=== PATIENT | female | born 1970 | race Caucasian/White ===

== ENCOUNTER → 2017-02-06 | Outpatient (CLI) | payer OTHER | LOC: BMCIMAGING 14:22 | PROVIDERS: ATTEND Otolaryngology | DX: R22.1 Localized swelling, mass and lump, neck (principal) | CPT/HCPCS: 76536-PO ==

== ENCOUNTER → 2017-08-04 | Outpatient (CLI) | payer OTHER | LOC: FIMAGING 08:45 | PROVIDERS: ATTEND Internal Medicine | DX: Z12.31 Encounter for screening mammogram for malignant neoplasm of breast (principal); Z80.3 Family history of malignant neoplasm of breast | CPT/HCPCS: G0202 ==

== ENCOUNTER 2018-07-21 10:52 | Emergency (ER) | payer MEDICAID ==
--- NOTE | 2018-07-21 12:13 | EDPHY ---
General Time Seen by Provider: 07/21/18 11:59 Narrative: CHIEF COMPLAINT: Fall from horse, rib pain HISTORY OF PRESENT ILLNESS: Patient presents by private vehicle with complaints of fall from horse and left rib pain. She reports that the injury occurred approximately 24 hr ago. She was riding her horse while wearing a helmet when she reports being thrown from the horse. She states that she landed on her left side with her arm against her. She did not strike her head or lose consciousness. She has complaints of severe left-sided rib pain just below the breast. She has mild left shoulder pain that is worse with palpation movement. Radiates around the left side of the flank. No abdominal pain. No chest pain, but she does have moderate to severe shortness of breath. Worse with mild exertion. She has no headache or neck pain. No back pain. No lower extremity or upper extremity complaints. No numbness tingling weakness. No nausea or vomiting. She was unable to sleep last night due to the pain. No other associated complaints or modifying factors REVIEW OF SYSTEMS: 10 systems were reviewed and negative with the exception of the elements mentioned in the history of present illness. PCP: Dr. Destiny Meng SPECIALISTS: None PAST MEDICAL HISTORY: Denies any medical diagnoses PAST SURGICAL HISTORY: Denies any surgical history SOCIAL HISTORY: Nonsmoker. Lives and works here independently with her domestic partner and 2 Children FAMILY HISTORY: Noncontributory EXAMINATION: General Appearance: Alert, no distress. Ambulatory and conversing in full sentences. Head: normocephalic, atraumatic Eyes: Pupils equal and round, no conjunctival pallor or injection ENT, Mouth: Mucous membranes moist Neck: Normal inspection, supple, non-tender. Midline trachea. No crepitus, step-off deformity. Respiratory: Splinting with inspiration. Lungs are clear to auscultation. No wheezing, rhonchi or crackles. No diminishment. No hypertympany Cardiovascular: Regular rate and rhythm Gastrointestinal: Abdomen is soft and nondistended. Bowel sounds are present. There is no tenderness in the 4 quadrants. No guarding. There is left CVA tenderness. Back: non-tender, no bony abnormalities. No crepitus, step-off deformity. Neurological: A&O, nonfocal, normal gait. Light sensory symmetric upper lower extremities. Strength is symmetric in the upper lower extremities. Normal steady gait Skin: Warm and dry, no rash. No petechiae or purpura Extremities: Nontender, no pedal edema Psychiatric: Mood and affect normal DIFFERENTIAL DIAGNOSES: Including but not limited to rib fracture, rib contusion, pulmonary contusion, pneumothorax, hemothorax, PE, splenic injury, hepatic injury, viscus injury MDM: 11:50 a.m. Fall from horse with blunt trauma yesterday afternoon. She has left shoulder left rib pain. She has left flank pain. Her abdominal exam is benign but she does have CVA tenderness on the left. X-ray of the ribs and shoulder was ordered prior to my examination and this is pending at this time. She is in no acute distress. Vital signs are within normal limits. 12:20 p.m. plain films reveal small, left apical pneumothorax. Given the patient's mechanism examination, I do feel it is reasonable to obtain a CT scan of the abdomen and pelvis as well as the chest. She does have left flank pain left shoulder pain which could be referred from the spleen. Patient is agreeable to this plan. I have discussed with Dr. Mora. Laboratory studies will be ordered confirm her renal function. She is postmenopausal thus I have not ordered an HCG. 12:30 p.m. Serum creatinine is 0.7 by [facility] laboratory. 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 1:40 p.m. Notified by radiologist Dr. Lanza. CT scan reveals small left apical pneumothorax with a nondisplaced 6th rib fracture on the left. Reformats are pending and there may be further rib fractures noted. 1:45 p.m. Cased discussed with Dr. Dan. He will evaluate the patient emergency department. 1:[address] Dan is in the emergency department to evaluate the patient. 2:[address] Dan has evaluated the patient and reviewed the CT imaging. He recommends Toradol 10 mg by mouth every 8 hr for 3-5 days, and then transitioned ibuprofen. He recommends Lidoderm patches as needed. He recommends Flexeril q.8h as needed. Recommends Dilaudid for breakthrough pain as needed. He recommends that the patient return in 24 hr for repeat chest x- ray to monitor the pneumothorax. ED precautions discussed. 2:40 p.m. I have also discussed the case with the patient's primary care physician Dr. Destiny Meng. She will order the repeat chest x-ray to be performed tomorrow. She will assume responsibility for the results of this and will instruct the patient to return to the emergency department if the x-ray has changed from today. Patient is aware this and she is comfortable being discharged home at this time. SUPERVISION: Patient was independently examined, but I discussed the case with my secondary supervising physician Dr. Mora CONSULTATION: Trauma, Dr. Dan - Diagnostics Imaging Results: Imaging Impressions Ribs w/Chest X-Ray 07/21/18 11:29 Impression: 1. Tiny left apical pneumothorax; otherwise negative. Results called to Dr. Marlon Mora at 12:00 PM. Shoulder X-Ray 07/21/18 11:34 Impression: Small left apical pneumothorax; otherwise negative left shoulder radiographs. Abdomen CT 07/21/18 12:19 Impression: 1. Small left pneumothorax. 2. Nondisplaced lateral left 6th rib fracture. 3. No acute posttraumatic findings in the abdomen or pelvis. 4. Adnexal varices, which can be seen in asymptomatic patients as well as patients with pelvic congestion syndrome. Findings discussed with Pratik Schmitz on 07/21/2018 at 13:41. Chest CT 07/21/18 12:19 Impression: 1. Small left pneumothorax. 2. Nondisplaced lateral left 6th rib fracture. 3. No acute posttraumatic findings in the abdomen or pelvis. 4. Adnexal varices, which can be seen in asymptomatic patients as well as patients with pelvic congestion syndrome. Findings discussed with Pratik Schmitz on 07/21/2018 at 13:41. - History Smoking Status: Never smoked - Objective Vital Signs: Initial Vital Signs Temperature (C) 97.7 F 07/21/18 10:56 Heart Rate 81 07/21/18 10:56 Respiratory Rate 16 07/21/18 10:56 Blood Pressure 123/78 H 07/21/18 10:56 O2 Sat (%) 97 07/21/18 10:56 O2 Delivery Mode Room Air Allergies/Adverse Reactions: No Known Allergies Allergy (Unverified 07/21/18 11:31) Home Medications: Medication Instructions Recorded Cyclobenzaprine [Flexeril 10 MG 10 mg PO TID PRN #15 tab 07/21/18 (*)] HYDROmorphone HCL [Dilaudid 2 mg 2 mg PO Q6 PRN #7 tab 07/21/18 (*)] Ketorolac Tromethamine [Toradol 1 tab PO Q8 PRN 3 Days #9 tab 07/21/18 10mg tab] Laboratory Results: Laboratory Results 07/21/18 12:28 07/21/18 07/21/18 07/21/18 12:33 12:28 12:28 WBC RBC Hgb POC Hgb 15.0 gm/dL gm/dL (12.6-16.3) Hct POC Hct 44 % % (38-47) MCV MCH MCHC RDW Plt Count PT 12.5 SEC SEC (12.0-15.0) INR 0.91 (0.83-1.16) APTT 25.2 SEC SEC (23.0-38.0) POC Sodium 142 mEq/L mEq/L (135-145) POC Potassium 3.9 mEq/L mEq/L (3.3-5.0) POC Chloride 104 mEq/L mEq/L (97-110) POC BUN 17 mg/dL mg/dL (7-23) POC Creatinine 0.7 mg/dL mg/dL (0.6-1.0) POC Glucose 94 mg/dL mg/dL (70-100) Total Bilirubin 0.4 mg/dL mg/dL (0.1-1.4) Conjugated Bilirubin 0.0 mg/dL mg/dL (0.0-0.5) Unconjugated Bilirubin 0.4 mg/dL mg/dL (0.0-1.1) AST 22 IU/L IU/L (14-46) ALT 31 IU/L IU/L (9-52) Alkaline Phosphatase 44 IU/L IU/L (38-126) Total Protein 6.9 g/dL g/dL (6.3-8.2) Albumin 4.4 g/dL g/dL (3.5-5.0) Lipase 72 IU/L IU/L (23-300) 07/21/18 12:28 WBC 6.97 10^3/uL 10^3/uL (3.80-9.50) RBC 4.87 10^6/uL 10^6/uL (4.18-5.33) Hgb 14.5 g/dL g/dL (12.6-16.3) POC Hgb Hct 43.3 % % (38.0-47.0) POC Hct MCV 88.9 fL fL (81.5-99.8) MCH 29.8 pg pg (27.9-34.1) MCHC 33.5 g/dL g/dL (32.4-36.7) RDW 12.1 % % (11.5-15.2) Plt Count 245 10^3/uL 10^3/uL (150-400) PT INR APTT POC Sodium POC Potassium POC Chloride POC BUN POC Creatinine POC Glucose Total Bilirubin Conjugated Bilirubin Unconjugated Bilirubin AST ALT Alkaline Phosphatase Total Protein Albumin Lipase Medications Given: Discontinued Medications Sodium Chloride (Ns) 1,000 mls @ 0 mls/hr IV EDNOW ONE; Wide Open PRN Reason: Protocol Stop: 07/21/18 12:20 Last Admin: 07/21/18 12:41 Dose: 1,000 mls Ketorolac Tromethamine (Toradol) 30 mg IVP EDNOW ONE Stop: 07/21/18 13:48 Last Admin: 07/21/18 13:57 Dose: 30 mg Point of Care Test Results: Chemistry 07/21/18 12:33 POC Sodium 142 mEq/L mEq/L (135-145) POC Potassium 3.9 mEq/L mEq/L (3.3-5.0) POC Chloride 104 mEq/L mEq/L (97-110) POC BUN 17 mg/dL mg/dL (7-23) POC Creatinine 0.7 mg/dL mg/dL (0.6-1.0) POC Glucose 94 mg/dL mg/dL (70-100) ISTAT H&H 07/21/18 12:33 POC Hgb 15.0 gm/dL gm/dL (12.6-16.3) POC Hct 44 % % (38-47) Departure - Departure Disposition: Home, Routine, Self-Care Clinical Impression: Pneumothorax, left Closed rib fracture Qualifiers: Encounter type: initial encounter Rib fracture type: multiple ribs Laterality: left Qualified Code(s): S22.42XA - Multiple fractures of ribs, left side, initial encounter for closed fracture Blunt chest trauma Qualifiers: Encounter type: initial encounter Qualified Code(s): S29.8XXA - Other specified injuries of thorax, initial encounter Condition: Good Instructions: Traumatic Pneumothorax (ED), Rib Fracture (ED) Additional Instructions: 1. Lidocaine patches [id number], patient directed location for 12 hr at a time and then remove for 12 hr 2. Tylenol 650-1000 mg every 6-8 hours as needed for pain 3. Toradol 10 mg every 8 hr as prescribed as needed for 3 days. And then transition to ibuprofen 600 mg every 8 hr as needed for pain. Do not take these medications on the same day 4. Flexeril as prescribed as needed for muscle spasm 5. Dilaudid pain medication for breakthrough pain as needed 6. Injury precautions as discussed by Dr. Dan 7. Your primary care physician has ordered a chest x-ray to be performed tomorrow here at [facility]. 8. Return here for any worsening chest pain, shortness of breath, fever difficulty breathing 9. Incentive spirometer as provided and demonstrated for the next week Referrals: Destiny Meng MD [Primary Care Provider] - As per Instructions Prescriptions: Cyclobenzaprine [Flexeril 10 MG (*)] 10 mg PO TID PRN #15 tab PRN Reason: Spasms HYDROmorphone HCL [Dilaudid 2 mg (*)] 2 mg PO Q6 PRN #7 tab PRN Reason: rib pain Ketorolac Tromethamine [Toradol 10mg tab] 1 tab PO Q8 PRN 3 Days #9 tab PRN Reason: rib pain
[2018-07-21] MEDS ORDERED: NS 1,000 ML IV ONE (12:19)
[2018-07-21] MEDS ORDERED: IOPAMIDOL (ISOVUE-300) 100 ML BTL ONE (12:39)
[2018-07-21 13:05] LABS: INR 0.91 (0.83-1.16); PROTIME(PATIENT) 12.5 SEC (12.0-15.0)
[2018-07-21] MEDS ORDERED: KETOROLAC 30 MG/1 ML SDV IVP ONE (13:47)
--- NOTE | 2018-07-21 14:51 | GCON ---
EMERGENCY ROOM TRAUMA CONSULTATION REASON FOR CONSULTATION: Small traumatic pneumothorax. HISTORY: A 48-year-old female who was riding her horse at a gallop bareback in a field. A recently gelded stallion pulled alongside, which spooked her horse who then made an immediate turn. Susi continued forward landing on the ground. She was wearing a helmet. There was no head injury or LOC. This occurred yesterday. She has had a moderate amount of pain, for that reason, she came to the ER for evaluation. She was evaluated by the ER group and found to have a crack in the 6th rib and possibly the 7th rib on the left. There is a very tiny pneumothorax less than .5%%. She is not a smoker. She has never had a pneumothorax before. There is no other visceral injury identified on the CAT scan. RECOMMENDATIONS: In talking with the patient, I discussed with the patient and her , chest physiology. I indicated to them that this should resolve on its own, but we need to make sure that the pneumothorax does not get bigger and I recommend a followup chest x-ray in 24 hours. I have also recommended she avoid riding a horse for the next 10 weeks because she still could fall off and injure herself before the fracture heals. I have also pointed out to them that it is important to have enough pain control so that she does not get consolidation of her left lung and a cough (that might lead to a pneumonia). I recommended Tylenol 1 g every 8 hours, Toradol 10 mg every 6 hours, Flexeril 10 mg every 8 hours as needed, a Lidoderm patch, and Dilaudid 2-4 mg every 4 hours as needed for severe pain. Appropriate followup will be arranged. PHYSICAL EXAMINATION: LUNGS: Breath sounds are equal bilaterally. CHEST: She has no pain with AP compression. Lateral compression was not carried out. /[id number]/MODL MTDD
[2018-07-21 14:56] VITALS: BP 112/83
== END 2018-07-21 14:56 | disposition home or self-care (01) ==
DX: S27.0XXA Traumatic pneumothorax, initial encounter (principal); S22.42XA Multiple fractures of ribs, left side, initial encounter for closed fracture; S29.8XXA Other specified injuries of thorax, initial encounter; V80.010A Animal-rider injured by fall from or being thrown from horse in noncollision accident, initial encounter
CPT/HCPCS: 82435-PO; 82565-PO; 82947-PO; 84132-PO; 84295-PO; 84520-PO; 85014-PO; 96374; J1885; Q9967

== ENCOUNTER → 2018-07-22 | Outpatient (CLI) | payer MEDICAID | LOC: BMCIMAGING 12:24 | PROVIDERS: ATTEND Internal Medicine | DX: S27.0XXA Traumatic pneumothorax, initial encounter (principal) ==

== ENCOUNTER → 2018-08-10 | Outpatient (CLI) | payer MEDICAID | LOC: FIMAGING 08:39 | PROVIDERS: ATTEND Internal Medicine | DX: Z12.31 Encounter for screening mammogram for malignant neoplasm of breast (principal); Z80.3 Family history of malignant neoplasm of breast ==